=== PATIENT | female | born 1975 | race Caucasian/White ===

== ENCOUNTER 2021-02-28 07:19 | Emergency (ER) | payer OTHER, SELFPAY ==
[2021-02-28 07:37] VITALS: BP 133/58; PULSE 73; RESP 16; TEMP 36; O2SAT 98; BMI 38.7
--- NOTE | 2021-02-28 08:32 | ED_ITS ---
HPI - Skin/Abscess/Foreign Bdy General Chief complaint: Skin/Abscess/Foreign Body <BISI Hoover Last Filed: 02/28/21 08:42> Stated complaint: quest bug bite r arm red swollen <BISI Hoover Last Filed: 02/28/21 08:42> Time Seen by Provider: 02/28/21 08:31 <BISI Hoover Last Filed: 02/28/21 08:42> Source: patient <BISI Hoover Last Filed: 02/28/21 08:42> Mode of arrival: ambulatory <BISI Hoover Last Filed: 02/28/21 08:42> History of Present Illness HPI narrative: 46-year-old female with no sig past medical history presenting to the ED complaining of suspected spider bite to right lower arm with noted erythema, swelling, pruritus since waking this morning. Denies fever, chills, sob <BISI Hoover Last Filed: 02/28/21 08:42> MD complaint: insect bite/sting <BISI Hoover Last Filed: 02/28/21 08:42> Onset (ago): day(s) <BISI Hoover Last Filed: 02/28/21 08:42> Location: RUE <BISI Hoover Last Filed: 02/28/21 08:42> Related Data Home medications: Previous Rx's Medication Instructions Recorded cetirizine 10 mg tablet (Zyrtec) 10 mg PO DAILY #10 tab 02/28/21 doxycycline hyclate 100 mg tablet 100 mg PO BID 7 Days #14 tab 02/28/21 <BISI Hoover Last Filed: 02/28/21 08:42> Allergies/Adverse reactions: Allergies Allergy/AdvReac Type Severity Reaction Status Date / Time No Known Allergies Allergy Verified 02/28/21 07:41 <BISI Hoover Last Filed: 02/28/21 08:42> Review of Systems Review of Systems: Constitutional: No Fever, No Chills ENT/Mouth: No Ear Pain, No Nasal Congestion, No sore throat, No Rhinorrhea, No Swallowing Difficulty Cardiovascular: No Chest Pain, No SOB Respiratory: No Cough Gastrointestinal: No Nausea, No Constipation, No Abdominal pain Genitourinary:No Hematuria, No Flank Pain Musculoskeletal: No joint pain, No Myalgias, + Joint Swelling Skin: + Skin Lesions, + rash Neuro: No Weakness, No Numbness, No Paresthesias <BISI Hooevr - Last File d: 02/28/21 08:42> Yes all other systems are reviewed and are negative <BISI Hoover - Last Filed: 02/28/21 08:42> [facility] Past Medical History Attestation statement: The following information was validated with the patient. <BISI Hoover - Last Filed: 02/28/21 08:42> Medical History: Medical History No known health problems <BISI Hoover - Last Filed: 02/28/21 08:42> Social History Social History: Social History Advance Directives: Yes Advance Directives Information Provided: Yes Advance Directives on File: No <BISI Hoover - Last Filed: 02/28/21 08:42> Physical Exam Vital Signs: Vital Signs: Last Vital Signs Temp 96.8 F 02/28/21 07:37 Pulse 73 02/28/21 07:37 Resp 16 02/28/21 07:37 BP 133/58 L 02/28/21 07:37 Pulse Ox 98 02/28/21 07:37 BMI result Body Mass Index 38.7 <BISI Hoover - Last Filed: 02/28/21 08:42> Vital Signs: Last Vital Signs Temp 96.8 F 02/28/21 07:37 Pulse 73 02/28/21 07:37 Resp 16 02/28/21 07:37 BP 133/58 L 02/28/21 07:37 Pulse Ox 98 02/28/21 07:37 BMI result Body Mass Index 38.7 <Gus Gallardo MD - Last Filed: 03/20/21 06:54> Const: General: cooperative and healthy appearing <BISI Hoover - Last Filed: 02/28/21 08:42> Orientation/consciousness: patient oriented x3 <BISI Hoover - Last Filed: 02/28/21 08:42> Limitations: no limitations <Elizabeth Orr PA - Last Filed: 02/28/21 08:42> HENMT: Head: Yes normal to inspection and Yes atraumatic <Elizabeth Orr PA - Last Filed: 02/28/21 08:42> Ears: hearing grossly normal bilaterally <Elizabeth Orr PA - Last Filed: 02/28/21 08:42> General nose exam: Normal external nose present <Elizabeth Orr [place] - Last Filed: 02/28/21 08:42> Face and sinus: Yes normal facial exam <Elizbaeth Orr [place] - Last Filed: 02/28/21 08:42> Eyes: General: appearance normal, both eyes and all related structures <Elizabeth Orr [place] - Last Filed: 02/28/21 08:42> EOM: EOMs intact bilaterally <Elizabeth Orr PA - Last Filed: 02/28/21 08:42> Neck: Neck: Yes normal visual inspection and Yes no meningeal signs <Elizabeth Orr [place] - Last Filed: 02/28/21 08:42> Resp: Effort & Inspection: normal respiratory effort and no respiratory distress <Elizabeth Orr [place] - Last Filed: 02/28/21 08:42> Auscultation: clear to auscultation bilaterally <Elizabeth Orr PA - Last Filed: 02/28/21 08:42> Cardio: Rate: regular rate <Elizabeth Orr [place] - Last Filed: 02/28/21 08:42> Heart sounds: S1 normal heart sound present and S2 normal heart sound present <Elizabeth Orr PA - Last Filed: 02/28/21 08:42> Peripheral pulses: radial pulses present <Elizabeth Orr [place] - Last Filed: 02/28/21 08:42> Skin: Other: + small red papule bite mary ellen to right distal arm with surrounding demarcated cellulitis, warm to touch. No streaking. No fluctuance/induration. Mild swelling. Not circumferential. Distal pulses intact <Elizabeth Orr PA - Last Filed: 02/28/21 08:42> Wounds: no wounds <Elizabeth Orr [place] - Last Filed: 02/28/21 08:42> Neuro: General: patient oriented x3 and no meningeal signs <BISI Hoover Last Filed: 02/28/21 08:42> Gait exam (Neuro): Normal gait present <BISI Hoover Last Filed: 02/19 08:42> Extrem: General: Yes normal to inspection <BISI Hoover Last Filed: 02/28/21 08:42> MDM - Skin/Abscess/Foreign Bdy MDM Narrative Medical decision making narrative: 46-year-old female with no sig past medical history presenting to the ED complaining of suspected spider bite to right lower arm with noted erythema, swelling, pruritus since waking this morning. On exam vital signs stable, NAD/well-appearing, physical exam as above consistent with suspected spider bite/insect bite with surrounding cellulitis. Due to puritis also concern for possible localized allergic reaction or ?contact dermatitis. Will get patient doxycycline and discussed Zyrtec and Benadryl at home. Area marked with marker in the emergency department <BISI Hoover Last Filed: 02/28/21 08:42> Medical Records Attestation: I reviewed the patient's medical records. <BISI Hoover Last Filed: 02/28/21 08:42> Lab Data Attestation: I reviewed the patient's lab results. <BISI Hoover Last Filed: 02/28/21 08:42> Discharge Plan Discharge Clinical Impression: Spider bite, Cellulitis <BISI Hoover - Last Filed: 02/28/21 08:42> Patient Disposition: Home, Self-Care <BISI Hoover Last Filed: 02/28/21 08:42> Instructions: Cellulitis (ED) <BISI Hoover Last Filed: 02/28/21 08:42> Additional Instructions: Doxycycline as an antibiotic please take as prescribed Take Tylenol /Motrin for pain and swelling Take Zyrtec and Benadryl for itching/possible allergic reaction/contact dermatitis. Take Benadryl at night as it will make you drowsy If redness is spreading past lines created in the emergency department please return to the ED <BISI Hoover Last Filed: 02/28/21 08:42> Prescriptions: New doxycycline hyclate 100 mg tablet 100 mg PO BID 7 Days Qty: 14 RF: 0 cetirizine [Zyrtec] 10 mg tablet 10 mg PO DAILY Qty: 10 RF: 0 <BISI Hoover - Last Filed: 02/28/21 08:42> Referrals: Julia Portillo MD [Primary Care Provider] - 3 days <BISI Hoover - Last Filed: 02/28/21 08:42> Stand Alone Forms: Work/School Release <BISI Hoover - Last Filed: 02/28/21 08:42> Interventions: ED Discharge Assessment Last Done: 02/28/21 08:51 <BISI Hoover - Last Filed: 02/28/21 08:42> Discharge Date/Time: 02/28/21 08:53 <BISI Hoover - Last Filed: 02/28/21 08:42>
--- NOTE | 2021-02-28 08:50 | PC.NURSE ---
PT EVALAUATED BY ANNA MATHEWS. PLAN IS FOR DC HOME. PT AGREEABLE TO PLAN. NO ACUTE DISTRESS
== END 2021-02-28 08:53 | disposition home or self-care (01) ==
PROVIDERS: Emergency Provider Emergency Medicine; PCP Internal Medicine
DX: L03.113 Cellulitis of right upper limb (principal)
CPT/HCPCS: 99283

== ENCOUNTER 2022-03-16 10:12 | Emergency (ER) | payer OTHER, SELFPAY ==
[2022-03-16 10:27] VITALS: BP 132/62; PULSE 84; RESP 20; TEMP 35.8; O2SAT 98; BMI 35.5
[2022-03-16 13:47] VITALS: BP 138/70; PULSE 71; RESP 16; TEMP 36.7; O2SAT 97
--- NOTE | 2022-03-16 14:04 | ED_ITS ---
HPI - Skin/Abscess/Foreign Bdy General Chief complaint: Skin/Abscess/Foreign Body Stated complaint: Allergic reaction Time Seen by Provider: 03/16/22 14:03 Source: patient Mode of arrival: ambulatory History of Present Illness HPI narrative: 47-year-old female with no significant past medical history presenting to the ED complaining of pruritic erythematous hives/swelling to bilateral arms, & right foot/ankle. Admits symptoms started last night while at her sister's house, took 50 mg of Benadryl with some relief, however woke up this morning with recurrent/persistent symptoms. Denies known allergen, new exposures/medications, new soaps/lotions, known insect bites, SOB, oral swelling, cough MD complaint: rash Onset (ago): day(s) Related Data Previous Rx's Medication Instructions Recorded cetirizine 10 mg tablet (Zyrtec) 10 mg PO DAILY #10 tabs 02/28/21 doxycycline hyclate 100 mg tablet 100 mg PO BID 7 days #14 tabs 02/28/21 cetirizine 10 mg capsule (Zyrtec) 10 mg PO DAILY PRN allergy 03/16/22 symptoms #14 caps diphenhydramine HCl 25 mg capsule 25 mg PO TID PRN allergic reaction 03/16/22 (Benadryl) #14 caps prednisone 20 mg tablet 40 mg PO DAILY 5 days #10 tabs 03/16/22 Allergies Allergy/AdvReac Type Severity Reaction Status Date / Time No Known Allergies Allergy Verified 02/28/21 07:41 Review of Systems Review of Systems: Constitutional: No Fever, No Chills ENT/Mouth: No Ear Pain, No Nasal Congestion, No Sinus Pain, No Hoarseness, No sore throat, No Rhinorrhea, No Swallowing Difficulty Cardiovascular: No Chest Pain, No SOB Respiratory: No Cough, No Sputum, No Wheezing Gastrointestinal: No Nausea, No Vomiting, No Diarrhea, No Constipation, No Abdominal pain Genitourinary: No Dysuria, No Urinary Frequency, No Hematuria, No Flank Pain Musculoskeletal: No joint pain, No Myalgias, No Joint Swelling Skin: No Skin Lesions, + rash Neuro: No Weakness, No Numbness, No Paresthesias Yes all other systems are reviewed and are negative Constitutional: Constitutional: Reports as per [facility] Past Medical History Attestation statement: The following information was validated with the patient. Medical History No known health problems Social History Social History Advance Directives: No Advance Directives Information Provided: No Physical Exam Vital Signs: Vital Signs: Last Vital Signs Temp 98.0 F 03/16/22 13:47 Pulse 71 03/16/22 13:47 Resp 16 03/16/22 13:47 BP 138/70 03/16/22 13:47 Pulse Ox 97 03/16/22 13:47 O2 Del Method 03/16/22 13:47 BMI result Body Mass Index 35.5 Const: General: cooperative, healthy appearing and no acute distress Orientation/consciousness: patient oriented x3 Limitations: no limitations HEENT: Head: Yes normal to inspection and Yes atraumatic Ears: hearing grossly normal bilaterally General nose exam: Normal external nose present Face and sinus: Yes normal facial exam Mouth: Normal oral and palatal mucosa present, oropharynx normal and no drooling Throat: Yes posterior oropharynx normal, Yes tonsils normal, Yes uvula midline, No peritonsillar mass, No uvula laterally displaced and No uvular edema Eyes: General: appearance normal, both eyes and all related structures EOM: EOMs intact bilaterally Neck: Neck: Yes normal visual inspection, Yes full ROM, Yes no meningeal signs, Yes trachea midline, Yes supple and No anterior neck swelling Resp: Effort & Inspection: normal respiratory effort, no audible wheezes, no cough, no grunting, not labored, no respiratory distress, no stridor and no tripod positioning Auscultation: clear to auscultation bilaterally, no crackles, no rales, no rhonchi and no wheezes Cardio: Rate: regular rate Heart sounds: S1 normal heart sound present and S2 normal heart sound present Skin: Other: + large blotchy raised hives noted to bilateral forearms, & small area to right foot and right ankle. + warmth, not circumferential, no fluctuance/induration Wounds: no wounds Neuro: General: patient oriented x3, tone normal and no meningeal signs Gait exam (Neuro): Normal gait present Extrem: General: Yes normal to inspection Course Course Course Narrative: -1600--patient reports symptomatic improvement after p.o. medications given in the ED. Clinical improvement and hives with decreased swelling and erythema. Results discussed with patient including worrisome signs and symptoms and strict return precautions, and when to return to the emergency department. They verbalized understanding and feel safe for discharge at this time. Medications Administered Discontinued Medications Generic Name Dose Route Start Last Admin Trade Name Perla PRN Reason Stop Dose Admin Diphenhydramine HCl 50 mg 03/16/22 14:09 03/16/22 14:22 Diphenhydramine Hcl 25 Mg Capsule PO 03/16/22 14:10 50 mg ONCE ONE Administration Famotidine 20 mg 03/16/22 14:09 03/16/22 14:22 Famotidine 20 Mg Tablet PO 03/16/22 14:10 20 mg ONCE ONE Administration Hydrocortisone 1 appl 03/16/22 14:09 03/16/22 14:31 Hydrocortisone 1 % Cream 28.35 Gm Tube TOPICAL 03/16/22 14:10 1 appl ONCE ONE Administration Protocol Loratadine 10 mg 03/16/22 14:09 03/16/22 14:22 Loratadine 10 Mg Tablet PO 03/16/22 14:10 10 mg ONCE ONE Administration Prednisone 60 mg 03/16/22 14:09 03/16/22 14:22 Prednisone 20 Mg Tablet PO 03/16/22 14:10 60 mg ONCE ONE Administration Medical Decision Making Medical Decision Making MDM Narrative: 47-year-old female with no significant past medical history presenting to the ED complaining of pruritic erythematous hives/swelling to bilateral arms, & right foot/ankle. On exam vital signs stable, in the ED, nontoxic-appearing, physical exam as above with noted hives to bilateral upper extremities and small area to right foot/ankle. No respiratory distress, talking in complete sentences, no mucous membrane or palm/sole involvement. Concern for allergic reaction vs contact dermatitis. No evidence of SJS/TENS. Low suspicion for cellulitis Plan: P.o. Benadryl, prednisone, Pepcid, Claritin, re-evaluate Differential Diagnosis Differential Diagnoses: The differential diagnosis associated with the presentation includes as above Discharge Plan Discharge Clinical Impression: Allergic reaction Patient Disposition: Home, Self-Care Instructions: General Allergic Reaction (ED), Allergy Testing (ED) Additional Instructions: Continue taking Benadryl at home as needed for allergic reaction symptoms. Benadryl will make you drowsy, please do not drive, drink alcohol or operate machinery while taking. Zyrtec to be taken during the day as well not make you drowsy. Prednisone as a steroid which will help with swelling/reaction. Continue to use topical hydrocortisone to rash only which were supplied within the emergency department. Do not apply to face, hands, genital region or feet as can discolored skin. Please follow-up with her doctor and an wildlife removal specialist/certified physician's assistant for allergy testing. If he develops shortness of breath, oral swelling/wheezing, coughing return to the ED immediately Prescriptions: New Zyrtec 10 mg capsule 10 mg PO DAILY PRN (Reason: allergy symptoms) Qty: 14 0RF diphenhydramine HCl [Benadryl] 25 mg capsule 25 mg PO TID PRN (Reason: allergic reaction) Qty: 14 0RF prednisone 20 mg tablet 40 mg PO DAILY 5 Days Qty: 10 0RF No Action doxycycline hyclate 100 mg tablet 100 mg PO BID 7 Days Qty: 14 0RF cetirizine [Zyrtec] 10 mg tablet 10 mg PO DAILY Qty: 10 0RF Referrals: Carloz Tolentino MD [Physician] - Kb Forde MD [Physician] - Interventions: ED Discharge Assessment Last Done: 03/16/22 16:15 Discharge Date/Time: 03/16/22 16:15
== END 2022-03-16 16:15 | disposition home or self-care (01) ==
PROVIDERS: Emergency Provider Emergency Medicine
DX: L50.9 Urticaria, unspecified (principal); T78.40XA Allergy, unspecified, initial encounter; X58.XXXA Exposure to other specified factors, initial encounter
CPT/HCPCS: 99283

== ENCOUNTER 2024-10-20 09:12 | Emergency (ER) | payer OTHER, SELFPAY ==
[2024-10-20 09:16] VITALS: BP 135/85; PULSE 102; RESP 20; TEMP 36.4; O2SAT 98; BMI 39.1
--- NOTE | 2024-10-20 09:50 | ED.ALLEREA ---
HPI - Allergic Reaction General Chief complaint: Allergic Reaction Stated complaint: woke up with an allergic reaction Time Seen by Provider: 10/20/24 09:22 Source: patient Mode of arrival: ambulatory Limitations: no limitations History of Present Illness ED Provider: Cyndi Hart NP HPI narrative: Patient is a 49-year-old female who presents emergency department for evaluation she awoke today with a diffuse pruritic rash to the bilateral upper and lower extremities it spares the torso back and face. Denies any known allergens. No recent new exposures to lotions, soaps, detergents, medications, or foods. Denies any history of similar reaction in the past. No recent infectious symptoms. To her knowledge no recent insect bites. No associated fever or chills. Related Data Previous Rx's ?Medication ?Instructions ?Recorded cetirizine 10 mg tablet (Zyrtec) 10 mg PO DAILY #10 tabs 02/28/21 doxycycline hyclate 100 mg tablet 100 mg PO BID 7 days #14 tabs 02/28/21 cetirizine 10 mg capsule (Zyrtec) 10 mg PO DAILY PRN allergy 03/16/22 symptoms #14 caps diphenhydramine HCl 25 mg capsule 25 mg PO TID PRN allergic reaction 03/16/22 (Benadryl) #14 caps prednisone 20 mg tablet 40 mg (2 x 20 mg) PO DAILY 5 days 03/16/22 #10 tabs cetirizine 10 mg tablet 10 mg PO DAILY #14 tabs 10/20/24 diphenhydramine HCl 25 mg capsule 25 mg PO TID PRN allergic reaction 10/20/24 (Benadryl) #14 caps prednisone 20 mg tablet 40 mg (2 x 20 mg) PO DAILY #10 tabs 10/20/24 Allergies Allergy/AdvReac Type Severity Reaction Status Date / Time No Known Allergies Allergy Verified 10/20/24 09:19 Review of Systems Review of Systems: Yes all other systems are reviewed and are negative PMFSH Past Medical History Attestation statement: The following information was validated with the patient. Source: old records reviewed Medical History No known health problems Social History Social History Smoked in Last 30 Days: No Use of substances other than those prescribed or required for medical reasons: No Advance Directives: No Advance Directives Information Provided: Yes Patient : No Physical Exam ED Vital Signs: Vital Signs - 24 hr 10/20/24 09:16 10/20/24 12:54 10/20/24 12:55 Temperature 97.5 F 99.3 F 99.3 F Pulse Rate 102 H 80 80 Respiratory Rate 20 16 16 Blood Pressure 135/85 126/63 126/63 Pulse Oximetry 98 98 98 Oxygen Delivery Method Room Air Room Air Room Air BMI result Body Mass Index 39.1 Appearance: Alert.?Oriented to person, place and time. No acute distress.?Normal affect. Eyes: Pupils equal, round and reactive to light.? Conjunctiva normal. ENT: Pharynx normal.??Uvula midline. No trismus. No drooling. Neck: Normal inspection.? Neck supple.?? CVS: Heart sounds normal. Normal heart rate and rhythm.? Pulses normal.?? Respiratory: No respiratory distress.? Lung sounds clear to auscultation bilaterally?? Abdomen: Soft and non-tender. Normoactive bowel sounds. Skin: Skin warm and dry.? Normal skin color.? Bilateral upper and lower extremities with diffuse urticaria, large?raised wheals. Torso and back as well as face without any rash. ? Extremities: No lower extremity edema.? Neuro: Moves all extremities spontaneously. Sensation intact bilaterally. Ambulates with normal steady gait. Course Reevaluation(s) Reevaluation #1: Urticaria with improvement after receiving IV Solu-Medrol Pepcid and Benadryl. Remains without respiratory distress no angioedema. Discharged home with course of prednisone, antihistamine, given strict return precautions and advised of appropriate outpatient follow-up. All questions answered. Stable for discharge Medications Administered Discontinued Medications Generic Name Dose Route Start Last Admin Trade Name Freq PRN Reason Stop Dose Admin Diphenhydramine HCl 25 mg 10/20/24 09:59 10/20/24 10:11 Diphenhydramine Hcl 50 Mg/Ml Vial IVPUSH 10/20/24 10:00 25 mg ONCE ONE Administration Famotidine 20 mg 10/20/24 09:59 10/20/24 10:11 Famotidine/Pf 20 Mg/2 Ml Vial IVPUSH 10/20/24 10:00 20 mg ONCE ONE Administration Methylprednisolone Sodium Succinate 125 mg 10/20/24 09:59 10/20/24 10:11 Methylprednisolone Sod Succ 125 Mg/2 Ml Vial IVPUSH 10/20/24 10:00 125 mg ONCE ONE Administration Medical Decision Making Medical Decision Making [facility] Narrative: Patient is a 49-year-old female who presents emergency department for evaluation of urticaria to the bilateral upper and lower extremities with onset this morning upon awakening. No known exposures that would have brought this on. Concerning for allergic-type reaction, not consistent with anaphylaxis. No evidence of infectious etiology to suggest sepsis. Patient appears uncomfortable from the pruritus, otherwise well appearing in no acute distress, breathing easily without throat symptoms. Speaking full sentences, and handling secretions without difficulty. There is no obvious threat to airway. Lungs are CTA in all he.? No signs of angioedema, stridor, airway compromise, anaphylaxis or anaphylactic shock. Not c/w SSSS/ TEN/Erythema multiforme/ Gagnon Johnsons. Patient to receive Benadryl, Solu-Medrol, and Pepcid IV pending re-evaluation. Given history and physical exam, Will watch and observe. If patient continues to be symptom free, will discharge with return precautions. Patient understands and agrees with plan Differential concerning for Allergic reaction/urticaria, anaphylaxis, angioedema, anxiety, asthma exacerbation, contact dermatitis Differential Diagnosis Differential Diagnoses: The differential diagnosis associated with the presentation includes (See narrative above) Admission/Observation Consideration of admission/observation: Escalation of care including admission/observation considered Lab Data [facility] Lab Attestation statement: I reviewed the patient's lab results. 10/20/24 10:10 10/20/24 10:10 Labs: Lab Results 10/20/24 Range/Units 10:10 WBC 4.9 (4.8-10.8) X10*3/uL RBC 5.10 (4.20-5.50) X10*6/uL Hgb 13.7 (12.0-16.0) g/dl Hct 41.2 (37.0-47.0) % MCV 80.8 (80.0-98.0) fL MCH 26.9 L (27.0-33.0) pg MCHC 33.3 (31.0-35.0) g/dl RDW 14.6 (11.0-16.0) % Plt Count 236 (160-400) X10*3/uL MPV 9.4 (9.4-12.3) fL Immature Gran % (Auto) 0.6 H (0.0-0.4) % Neut % (Auto) 49.4 (45-73) % Lymph % (Auto) 41.8 H (20-40) % [place] % (Auto) 7.4 (2-11) % Eos % (Auto) 0.2 (0-4) % Baso % (Auto) 0.6 (0-2) % Lymph # (Auto) 2.0 (1.2-4.9) X10*3/uL [place] # (Auto) 0.4 (0.1-1.2) X10*3/uL Eos # (Auto) 0.0 (0.0-0.4) X10*3/uL Baso # (Auto) 0.0 (0.0-0.2) X10*3/uL Abs Immat Gran (auto) 0.03 (0.00-0.03) X10*3/uL Absolute Neuts (auto) 2.4 (2.0-8.3) x10*3/uL Absolute Nucleated RBC 0.000 (0.0-0.012) X10*3/uL Nucleated RBC % (auto) 0.0 (0.0-0.2) /100WBC Smear Tech's Comments VERIFIED Sodium 137 (135-145) mmol/L Potassium 3.9 (3.3-5.1) mmol/L Chloride 107 (96-108) mmol/L Carbon Dioxide 22 (22-29) mmol/L Anion Gap 12 (12-20) BUN 10 (9-16) mg/dL Creatinine 0.74 (0.5-1.4) mg/dL Estim Creat Clear Calc 117.9 Estimated GFR > 60 Random Glucose 118 H (60-115) mg/dL Calcium 8.5 (8.4-10.2) mg/dL Total Bilirubin 0.4 (0.0-1.0) mg/dL AST 38 H (5-31) U/L ALT 29 (0-31) U/L Alkaline Phosphatase 77 (39-117) U/L Total Protein 7.1 (6.5-8.0) g/dL Albumin 4.2 (3.5-5.0) g/dL TSH 0.57 (0.32-4.0) uIU/mL External Record Review External record reviewed: Outpatient record Critical Care Time Critical Care Time Critical Care Time: Yes Total Critical Care Time: 35 Attestation: Time is exclusive of separately billable procedures. Time includes: direct patient care, patient reassessment, coordination of patient care, interpretation of data (laboratory data, pulse oximetry), review of patient's medical records, medical consultation and documentation of patient care. Procedures excluded from critical care time: central intravenous line placement and electrocardiography. Discharge Plan Discharge Clinical Impression: Urticaria Patient Disposition: Home, Self-Care Instructions: Urticaria (ED) Additional Instructions: You were evaluated in the emergency department today with potential concern for allergic reaction. You had an urticarial rash to your arms and legs. At this time the exact cause is unclear. You were treated with medications in the emergency department with some affect. You are being sent home with medications including prednisone to take daily starting tomorrow. Take this with food to prevent stomach upset. I have also sent a prescription for Zyrtec to the pharmacy take 1 tablet daily. You may use Benadryl 25 mg 3 times daily as needed for persistent symptoms. This however may make you drowsy to use this with caution. Follow-up with your primary care provider with any persistent symptoms. As discussed, you should consider allergy testing, it may take some time in order to get in as a new patient with an interface engineer. Return to emergency department any new or worsening symptoms or concerns. Prescriptions: New prednisone 20 mg tablet 40 mg PO DAILY Qty: 10 0RF cetirizine 10 mg tablet 10 mg PO DAILY Qty: 14 0RF diphenhydramine HCl [Benadryl] 25 mg capsule 25 mg PO TID PRN (Reason: allergic reaction) Qty: 14 0RF No Action doxycycline hyclate 100 mg tablet 100 mg PO BID 7 Days Qty: 14 0RF cetirizine [Zyrtec] 10 mg tablet 10 mg PO DAILY Qty: 10 0RF Zyrtec 10 mg capsule 10 mg PO DAILY PRN (Reason: allergy symptoms) Qty: 14 0RF diphenhydramine HCl [Benadryl] 25 mg capsule 25 mg PO TID PRN (Reason: allergic reaction) Qty: 14 0RF prednisone 20 mg tablet 40 mg PO DAILY 5 Days Qty: 10 0RF Referrals: Raleigh Dee MD [Primary Care Provider, Internal Medicine] Stand Alone Forms: Work/School Release Interventions: ED Discharge Assessment Last Done: 10/20/24 12:55 Discharge Date/Time: 10/20/24 12:57 Print Language: Slovak
--- OUTSIDE RECORDS SUMMARY | 2024-10-20 09:53 | XMS_ITS ---
Author Name [facility] Organization Unknown Care Team Organization Name Specialty Phone Email Start Date End Da te [facility] Raleigh Dee Primary Care 05/27/202210/20 [facility] Termed, PROVIDER Primary Care 01/27/202210/20
--- OUTSIDE RECORDS SUMMARY | 2024-10-20 09:53 | XMS_ITS | Clinical Summary ---
Author Organization [facility] [address] [place] [address] [place] [address] Phone Care Team Providers Care Outreach Director Name Role Phone Raleigh Dee MD Primary Care Provider [phone] Allergies No known active allergies Medications semaglutide (Wegovy) 0.25 mg/0.5 mL injection penIndications:H ypertriglyceride jose,Obesity (BMI 35.0-39.9 without comorbidity) Inject 0.25 mg under the skin every 7 (seven) days. 2 mL 08/02/2024 Active Active Problems Problem Noted Date Diagnosed Date Class 3 severe obesity with body mass index (BMI) of 40.0 to 44.9 in adult ([facility] V24, [facility] V28) 03/11/2024 Hidradenitis suppurativa 04/23/2023 Iron deficiency 04/23/2023 Mixed hyperlipidemia 04/23/2023 Hypertriglyceridemia 07/20/2017 Obesity (BMI 35.0-39.9 without comorbidity) 03/2017 Uterine fibroid 06/06/2013 Overview (03/11/2024): Asymptomatic, 3.5 cm on right side uterus Anxiety 09/16/2010 Depression 02/23/2008 Lumbago 02/23/2008 Encounters Date Type Department Care Team Description 08/29/2024 Telephone Adult Medicine [facility] [address] [place], [place] [phone] Raleigh Dee MD 08/15/2024 Telephone Adult Medicine [facility] [address] [place] [phone] Raleigh Dee MD Prior Authorization (Wegovy .25 MG /.5ML INJ (4 Pens)) 08/10/2024 Telephone Gastroenterology - [place] [address] [place] [address] Hamzah Rudd MD special procedure 08/02/2024 10:30 AM EDT Office Visit Adult Medicine [facility] [address] [place] [phone] Raleigh Dee MD Physical exam (Primary Dx); Hypertriglyceridemia; Obesity (BMI 35.0-39.9 without comorbidity); Encounter for screening mammogram for malignant neoplasm of breast; Vitamin D deficiency disease; Screening for deficiency anemia; Screening for diabetes mellitus (DM); Screening for thyroid disorder; Screening for colorectal cancer from Last 3 Months Immunizations Name Administration Dates Next Due Hepatitis B (Jnpjxkk-J-Yexoy , Recombivax HB-Adult) 19yo and older 02/23/2008 Influenza Quadravalent, MDCK , 0.5ml, preservative free (Flucelvax) 6mo and older 02/13/2020 Influenza Quadravalent, MDCK , 0.5ml, with preservative (Flucelvax) 6mo and older 01/12/2018 Influenza trivalent, 0.5mL, preservative free (Fluarix; FluLaval; Fluzone) ages 6mo and older (Afluria) 3 years and older 02/23/2008 Moderna SARS-CoV-2 COVID-19, mRNA, LNP-S, preservative free 05/02/2020,04/04/2020 Tdap Tetanus diptheria acell ular pertussis (Boostrix; Adacel) 7yo and older 04/27/2022,02/23/2008 Surgical History Surgery Date Site/Laterality Comments TUBAL LIGATION 18 PROCEDURE: HISTORICAL TUBAL LIGATION OTHER SURGICAL HISTORY 2009 PROCEDURE: HISTORICAL COSMETIC SURGERY; COMMENT: b/l breast reduction BREAST SURGERY 2009 Bilateral PROCEDURE: [place] UNLISTED PROCEDURE BREAST; COMMENT: b/l reduction 2009 Medical History Medical History Date Comments Lumbago 02/23/2008 DX:Lumbago Depressive disorder, not els ewhere classified 02/23/2008 DX:Depressive disorder, not elsewhere classified; COMMENT: diff sleeping; trial of Ambien in past Obesity (BMI 35.0-39.9 without comorbidity) Hypertriglyceridemia Family History Medical History Relation Name Comments Colon cancer Father Diabetes Father Stroke, colon c ancer age 77 Heart attack Father Stroke Father Diabetes Mother HTN, stroke, CH F, mental disorder, anemia, from kidney failure, was on dialysis Heart attack Mother Stroke Mother No Known Problems Son 1 No Known Problems Son 2 Relation Name Status Comments Father Alive DMII, CVA (age 77) Mother (Age 67) HTN, DMII, CVA, Renal failure on HD Son 1 Alive 24 A&W Son 2 Alive 21 A&W Social History Tobacco Use Types Packs/Day Years Used Date Smoking Tobacco: Former Cigarettes Q uit: 10/20/2017 Smokeless Tobacco: Never Tobacco Cessation:Counseling Given: Not Answered Alcohol Use Standard Drinks/Week Comments Yes 0 (1 standard drink = 0.6 oz pur e alcohol) social Housing Instability Answer Date Recorde d Are you worried that in the next 2 months you may not have stable housing? No 08/06/2024 Food Access & Nutrition Answer Date Rec orded Do you have access to a vari ety of food including fruits and vegetables? Yes 08/06/2024 Access to Healthcare Answer Date Record ed Within the last 3 months, ho w many times did you visit the emergency department for your medical care? 0 08/06/2024 Health Literacy Answer Date Recorded How often do you need to hav e someone help you when you read instructions, pamphlets, or other written material from your doctor or pharmacy? Never 08/06/2024 Caregiver: How often do you need to have someone help you when you read instructions, pamphlets, or other written material from your doctor or pharmacy? Not on file 08/06/2024 Financial Risk Answer Date Recorded How hard is it for you to pa y for the very basics like food, housing, medical care, and air conditioning / heating? Somewhat hard 08/06/2024 Transportation Answer Date Recorded Has the lack of transportati on kept you from meetings, work, or from getting things needed for daily living? No Has the lack of transportati on kept you from medical appointments or from getting medications? No 08/06/2024 Social Isolation Answer Date Recorded How often do you feel lonely or isolated from those around you? Sometimes 08/06/2024 Food Risk Answer Date Recorded Within the past 12 months we worried whether our food would run out before we got money to buy more. Sometimes true 025 Within the past 12 months th e food we bought just didn't last and we didn't have money to get more. Sometimes true 08/06/2024 Dependent Care Answer Date Recorded Do you need help finding or paying for care for your loved ones. For example, school childcare attendant or elderly care for an older adult? No 08/06/2024 Education Answer Date Recorded Do you think completing more education or training, like finishing a GED, going to college, or learning a trade, would be helpful for you? N/A 08/06/2024 Employment and Income Answer Date Recor ded During the last four weeks, have you been actively looking for work? No 08/06/2024 Living Situation Answer Date Recorded What is your living situation? 0 08/06/2024 Comments No Sex and Gender Information Value Date Recorded Sex Assigned at Female 08/06/2024 11:10 AM EDT Legal Sex Female 5:41 PM EST Gender Identity Female 08/06/2024 11:10 AM EDT Sexual Orientation Straight 08/06/2024 11 :10 AM EDT Obstetrics History Last Filed Vital Signs Vital Sign Reading Time Taken Comments Blood Pressure 132/82 08/02/2024 10:25 AM EDT Pulse 66 08/02/2024 10:25 AM EDT Temperature 36.4 C (97.6 F) 08/02/2024 10:25 AM EDT Respiratory Rate 14 08/02/2024 10:25 AM EDT Oxygen Saturation - - Inhaled Oxygen Concentration - - Weight 110 kg (243 lb) 08/02/2024 10:25 AM EDT Height 167.6 cm (5' 6 ) 08/02/2024 10:25 AM EDT Body Mass Index 39.22 08/02/2024 10:25 AM EDT Plan of Treatment Upcoming Encounters Date Type Department Care Team (Late st Contact Info) Description 10/23/2024 9:15 AM EDT Office Visit Adult Medicine [facility] [address] [place] [phone] Raleigh Dee MD [address] [place] [id number] 11/10/2024 10:30 AM EDT Appointment [facility] [address] [place] [phone] Hamzah Rudd MD [address] [address] 12/08/2024 9:00 AM EDT Office Visit Adult [facility] [address] [place] [phone] Raleigh Dee MD [address] [place] [id number] 01/23/2025 10:15 AM EST Office Visit Bariatric Surgery - [place] [address] [phone] Stefanie Smith MD [address] [address] Health Maintenance Due Date Last Done Comments Hepatitis B Vaccines (2 of 3 - 19+ 3-dose series) 03/22/2008 02/23/2008 Breast Cancer Screening 02/23/2020 02/23/20 18, 09/23/2016 Cervical Cancer Screening: P ap Smear 04/27/2021 04/27/2018, 04/27/2018, 04/25/2018 Colorectal Cancer Screening: Colonoscopy 02/28/2022 HIV Screening 02/28/2022 COVID-19 Vaccine (3 - 2023-2 5 season) 2023 05/02/2020, 04/04/2020 Influenza Vaccine (#1) 2024 , 01/12/2018, 02/23/2008 Social Influencers of Health Screening 08/06/2025 08/06/2024 Cholesterol Screening (Lipid Panel) 06/06/2028 06/07/2023 DTaP,Tdap,and Td Vaccines (4 - Td or Tdap) 04/27/2032 04/27/2022, 08/29/2021, 02/23/2008 Hepatitis C Screening Completed 09/12/2015 Depression Screening Completed 08/06/2024 HIB Vaccines Aged Out No longer eligi ble based on patient's age to complete this topic HPV Vaccines Aged Out No longer eligi ble based on patient's age to complete this topic Hepatitis A Vaccines Aged Out No long er eligible based on patient's age to complete this topic IPV Vaccines Aged Out No longer eligi ble based on patient's age to complete this topic MMR Vaccines Aged Out No longer eligi ble based on patient's age to complete this topic Meningococcal ACWY Vaccine Aged Out N o longer eligible based on patient's age to complete this topic Meningococcal B Vaccine Aged Out No l onger eligible based on patient's age to complete this topic Pneumococcal Vaccine: Pediatrics (0 to 5 Years) and At-Risk Patients (6 to 49 Years) Aged Out No longer eligible b ased on patient's age to complete this topic RSV Immunization Patients Under 20 months Aged Out No longer eligible b ased on patient's age to complete this topic Varicella Vaccines Aged Out No longer eligible based on patient's age to complete this topic Procedures Procedure Name Priority Date/Time Associated Diagnosis Comments LIPID PANEL Routine 06/07/2023 HPV Routine 04/27/2018 DX MAMMO INCL CAD BI Routine 02/22/2018 9:48 AM EST Mastodynia HEPATITIS C SCREENING Routine 09/12/2015 from Last 3 Months or Most Recently Relevant to Health Maintenance Results * (ABNORMAL) Lipid panel (06/07/2023) LDL/HDL Ratio 4 0 - 4 Triglycerides 168(A) 0 - 150 mg/dL Cholesterol 166 0 - 200 mg/dL HDL 39(A) >=40 mg/dL LDL Cholesterol 94 0 - 100 mg/dL Blood Venous blood specimen / Unknown us Historical Provider LAB BLOOD ORDERABLES Courtney morgan Result * Cervical Cancer Screening: HPV (04/27/2018) Cervical Cancer Screening: HPV negative, abstracted us Historical Provider HEALTH MAINTENANCE Final Result * DX MAMMO INCL CAD BI (02/22/2018 9:48 AM EST) Anatomical Region Laterality Modality Mammography 02/15/2018 9:05 AM EST Narrative 02/22/2018 12:24 PM EST This is a summary report. The complete report is available in the patient's medical record. If you cannot access the medical record, please contact the sending organization for a detailed fax or copy. BILATERAL DIGITAL DIAGNOSTIC MAMMOGRAM Indication: Burning pain in the right breast 3 weeks; history of reduction mammoplasty. Comparison: Multiple prior screening and diagnostic mammogram studies, along with breast ultrasound studies, dating back to 10/13/2014. Technique: Bilateral CC and MLO projections were obtained. CAD software was utilized during image interpretation. Findings: The breasts are composed of fatty and fibroglandular tissue. Stable postsurgical appearance of both breasts with small metallic surgical clips at the middle and posterior thirds of the right breast. Faint peripherally calcified oil cyst at the anterior one third of the superomedial right breast. Additional punctate and grouped microcalcifications throughout the right breast appear stable. Patchy parenchyma at the far posterior, superior right breast on the MLO view appears stable dating back to 2014. No new suspicious mass, architectural distortion or suspicious calcifications are identified. IMPRESSION: : No mammographic evidence of malignancy. Stable postsurgical changes, as above. Sonographic evaluation to follow for complete diagnostic workup. LIMITED RIGHT BREAST ULTRASOUND Findings: Focused sonographic evaluation in the region of reported pain, at the 12-1:00 axes, approximately 9 cm from the nipple (upper inner quadrant) demonstrates no solid mass or other focal sonographic abnormality. Impression: No sonographic abnormality. Clinical management of persistent symptoms recommended. BI-RADS 2-benign. 5 year breast cancer risk assessment 0.3 % Lifetime breast cancer risk assessment 4.7 % Breast cancer risk category Low (<15%) Procedure Note Alina Millan, DO - 03/10/2022 This is a summary report. The complete report is available in thepatient's medical record. If you cannot access the medical record, pleasecontact the sending organization for a detailed fax or copy. BILATERAL DIGITAL DIAGNOSTIC MAMMOGRAM Indication: Burning pain in the right breast 3 weeks; history ofreduction mammoplasty. Comparison: Multiple prior screening and diagnostic mammogram studies,along with breast ultrasound studies, dating back to 10/13/2014. Technique: Bilateral CC and MLO projections were obtained. CAD softwarewas utilized during image interpretation. Findings: The breasts are composed of fatty and fibroglandular tissue.Stable postsurgical appearance of both breasts with small metallicsurgical clips at the middle and posterior thirds of the right breast.Faint peripherally calcified oil cyst at the anterior one third of thesuperomedial right breast. Additional punctate and groupedmicrocalcifications throughout the right breast appear stable. Patchyparenchyma at the far posterior, superior right breast on the MLO viewappears stable dating back to 2014. No new suspicious mass, architecturaldistortion or suspicious calcifications are identified. IMPRESSION: : No mammographic evidence of malignancy. Stable postsurgical changes, asabove. Sonographic evaluation to follow for complete diagnostic workup. LIMITED RIGHT BREAST ULTRASOUND Findings: Focused sonographic evaluation in the region of reported pain,at the 12-1:00 axes, approximately 9 cm from the nipple (upper innerquadrant) demonstrates no solid mass or other focal sonographicabnormality. Impression: No sonographic abnormality. Clinical management of persistentsymptoms recommended. BI-RADS 2-benign. 5 year breast cancer risk assessment 0.3 % Lifetime breast cancer risk assessment 4.7 % Breast cancer risk category Low (<15%) Conchis Birmingham MD IMG BI PROCEDURES Final Resul t * Hepatitis C Screening (09/12/2015) Pathologist [facility] Hepatitis C Screening abstracted Historical Provider HEALTH MAINTENANCE Final Result from Last 3 Months or Most Recently Relevant to Health Maintenance Insurance [facility] Care Teams Outreach Director Relationship Specialty Start Date End Date Raleigh Dee MD [address] [place] [address] [place] [address] PCP - General 04/27/22
--- OUTSIDE RECORDS SUMMARY | 2024-10-20 09:53 | XMS_ITS | Clinical Summary ---
Author Organization [employer] Address [address] [place] [address] [address] [place] [address] Care Team Providers Care Endoscopy Support Specialist Name Role Phone Unavailable Primary Care Provider Unavailabl e Medications No known medications Active Problems No known active problems Family History Medical History Relation Name Comments Diabetes Father Diabetes Mother Relation Name Status Comments Father Mother Social History Tobacco Use Types Packs/Day Years Used Date Smoking Tobacco: Never Assessed Comments Unknown Sex and Gender Information Value Date Recorded Sex Assigned at Female 01/19/2022 10:19 AM EDT Legal Sex Female 10:19 AM EDT Gender Identity Choose not to disclose 10:19 AM EDT Sexual Orientation Choose not to disclose 2021 10:19 AM EDT Plan of Treatment Health Maintenance Due Date Last Done Comments CT Colonography 1977 Colonoscopy 1977 Colorectal Cancer Screening 1977 Depression Screening 1977 FIT DNA/Cologuard 1977 FIT 1977 FOBT 1977 HIV Screening 1977 SDOH Screening 1977 Sigmoidoscopy 1977 Disability Screening 1977 Alcohol/Substance Use Screening 1989 Tobacco Screening 1989 Family Planning (PISQ) 01/18/1992 Hepatitis C Screening 1995 Pap Smear 1998 Cervical Cancer Screening 2007 HPV/Cotest 2007 Hepatitis B Vaccines (2 of 3 - 19+ 3-dose series) 03/22/2008 02/23/2008 Mammogram 2017 COVID-19 Vaccine (2023-2 5 season) 2023 05/02/2020, 04/04/2020 Influenza Vaccine (#1) 2024 , 01/12/2018, 02/23/2008 Zoster Vaccines (1 of 2) 2027 DTaP/Tdap/Td Vaccines (4 - T d or Tdap) 04/27/2032 04/27/2022, 08/29/2021, 02/23/2008 RSV Patients and Patients Aged 60 years or older (1 - 1-dose 75+ series) 01/18/2052 HIB Vaccines Aged Out No longer eligi [...] patient's age to complete this topic Meningococcal Vaccine Aged Out No ceasar terrell eligible based on patient's age to complete this topic Pneumococcal Vaccine: Pediatrics (0 to 5 Years) and At-Risk Patients (6 to 49) Years Aged Out No longer eligible b ased on patient's age to complete this topic RSV under 20 months Aged Out No longe r eligible based on patient's age to complete this topic Rotavirus Vaccines Aged Out No longer eligible based on patient's age to complete this topic Insurance , [address] [place] [address]
[2024-10-20 10:16] LABS: Hematocrit 41.2 % (37.0-47.0); Hemoglobin 13.7 g/dl (12.0-16.0); Imm Gran Abs Auto 0.03 X10*3/uL (0.00-0.03); Imm Gran Pct Auto 0.6 % (0.0-0.4); Lymphocytes Absolute Auto 2.0 X10*3/uL (1.2-4.9); MANUAL DIFF FLAG SCAN; Mean Corpuscular HGB Conc 33.3 g/dl (31.0-35.0); Mean Corpuscular Hemoglobin 26.9 pg (27.0-33.0); Mean Corpuscular Volume 80.8 fL (80.0-98.0); NRBC Abs Auto 0.000 X10*3/uL (0.0-0.012); NRBC Pct Auto 0.0 /100WBC (0.0-0.2); Platelet Count 236 X10*3/uL (160-400); Red Blood Count 5.10 X10*6/uL (4.20-5.50); SCAN SMEAR FLAG 1; White Blood Count 4.9 X10*3/uL (4.8-10.8)
--- NOTE | 2024-10-20 10:18 | PC.NURSE ---
patient a&ox3, iv inserted, labs drawn, pt medicated per order, pt has bilat arm/leg redness/rash like areas pt describes as painful 10/10 with itching as well.
[2024-10-20 10:36] LABS: Alanine Aminotransferase 29 U/L (0-31); Albumin Level 4.2 g/dL (3.5-5.0); Alkaline Phosphatase 77 U/L (39-117); Anion Gap 12 (12-20); Aspartate Amino Transferase 38 U/L (5-31); Blood Urea Nitrogen 10 mg/dL (9-16); Calcium 8.5 mg/dL (8.4-10.2); Carbon Dioxide 22 mmol/L (22-29); Chloride 107 mmol/L (96-108); Creatinine Clr Calc Pharmacy 117.9; Estimated Glomerular Filt Rate > 60; Potassium 3.9 mmol/L (3.3-5.1); Sodium 137 mmol/L (135-145); Total Protein 7.1 g/dL (6.5-8.0)
[2024-10-20 12:54] VITALS: BP 126/63; PULSE 80; RESP 16; TEMP 37.4; O2SAT 98
[2024-10-20 12:55] VITALS: BP 126/63; PULSE 80; RESP 16; TEMP 37.4; O2SAT 98
== END 2024-10-20 12:57 | disposition home or self-care (01) ==
PROVIDERS: Nurse Practitioner Family; Emergency Provider Emergency Medicine Emergency Medical Services; PCP Internal Medicine
DX: L50.9 Urticaria, unspecified (principal); R21 Rash and other nonspecific skin eruption; Z79.899 Other long term (current) drug therapy
CPT/HCPCS: 36415; 80053; 84443; 85025; 96374; 96375; 99284; 99291; J1200; J1308; J2919